=== PATIENT | male | born 1965 | race Caucasian/White ===

== ENCOUNTER 2018-03-08 13:04 | Inpatient (IN) | payer MEDICARE ==
[~2018-03-08 13:04] MED LIST: DEXAMETHASONE SOD PHOSPHATE INJ 4 MG/1 ML VIAL ONE; KETOROLAC TROMETHAMINE 60 MG/2 ML SDV ONE; LIDOCAINE 2% INJ-PF (20 MG/ML) 2 ML AMPUL ONE; NEOSTIGMINE METHYLSULFATE 10 MG/10 ML VIAL ONE; ONDANSETRON HCL INJ/PF 4 MG/2 ML SDV ONE; ROCURONIUM BROMIDE INJ 50 MG/5 ML VIAL IV ONE; SUCCINYLCHOLINE CHLORIDE INJ 200 MG/10 ML VIAL ONE; VECURONIUM BROMIDE INJ 10 MG VIAL IV ONE
--- NOTE | 2018-03-08 14:34 | ER Document Report ---
ED Medical Screen (RME) - General Chief Complaint: Abdominal Pain Stated Complaint: ABDOMINAL PAIN Time Seen by Provider: 03/08/18 14:29 Mode of Arrival: Ambulatory Information source: Patient, [facility] Records Notes: 52-year-old male with no reported past medical history presents with complaint of abdominal pain, nausea, vomiting. Patient states abdominal pain started 2 days prior to arrival. He describes it as a sharp stabbing pain that is diffusely located. Patient has not had a bowel movement in 2 days. He denies any narcotic medications but does admit to drinking heavily on a daily basis. I have greeted and performed a rapid initial assessment of this patient. A comprehensive ED assessment and evaluation of the patient, analysis of test results and completion of medical decision making process we will be contacted by additional ED providers. PHYSICAL EXAMINATION: Vital signs reviewed-tachycardic GENERAL: Appears uncomfortable LUNGS: No respiratory distress Musculoskeletal: Normal range of motion NEUROLOGICAL: Normal speech, normal gait. PSYCH: Normal mood, normal affect. SKIN: Warm, Dry, normal turgor, no rashes or lesions noted. TRAVEL OUTSIDE OF THE [place] IN LAST 30 DAYS: No - HPI Onset: Other Onset/Duration: Gradual, Persistent, Worse Quality of pain: Stabbing Severity: Moderate Associated Symptoms: Abdominal pain, Nausea, Vomiting Exacerbated by: Denies Relieved by: Denies Recently seen / treated by doctor: No - Related Data Smoking: Cigarettes Frequency of alcohol use: Heavy Drug Abuse: None Allergies/Adverse Reactions: No Known Allergies Allergy (Unverified 03/08/18 13:07) Physical Exam - Vital signs Vitals: Temp Pulse Resp BP Pulse Ox 98 F 117 H 28 H 124/86 H 93 03/08/18 13:28 03/08/18 13:28 03/08/18 13:28 03/08/18 13:28 03/08/18 13:28 Course - Vital Signs Vital signs: Temp Pulse Resp BP Pulse Ox 98 F 117 H 28 H 124/86 H 93 03/08/18 13:28 03/08/18 13:28 03/08/18 13:28 03/08/18 13:28 03/08/18 13:28
--- NOTE | 2018-03-08 15:32 | RADIOLOGY REPORT (SQ) ---
EXAM DESCRIPTION: ACUTE ABDOMEN SERIES COMPLETED DATE/TIME: 03/08/2018 3:07 pm REASON FOR STUDY: no BM generalized pain COMPARISON: None. NUMBER OF VIEWS: Three views. TECHNIQUE: Frontal chest, supine abdomen and upright/decubitus abdomen radiographic images acquired. LIMITATIONS: None. FINDINGS: CHEST: Small right pleural effusion. FREE AIR: There is abnormal air lucency beneath the right hemidiaphragm. BOWEL GAS PATTERN: There are gas-filled distended loops of bowel in the left hemiabdomen measuring up to 5.2 cm. There is additional scattered gas present to the rectum. CALCIFICATIONS: No suspicious calcifications. HARDWARE: None in the abdomen. SOFT TISSUES: No gross mass or suggestion of organomegaly. BONES: No acute fracture. No worrisome bone lesions. OTHER: No other significant finding. IMPRESSION: 1. Small right pleural effusion. 2. Abnormal air lucency which appears to be located beneath the right hemidiaphragm, concerning alth ough not definite for intra-abdominal free air. Recommend CT to further evaluate. 3. Multiple gas-filled, distended loops of bowel in the left hemiabdomen measuring up to 5.2 cm. Th ere is additional scattered gas present to the rectum. Findings may reflect a partial or developing small bowel obstruction. Recommend CT to further evaluate. TECHNICAL DOCUMENTATION: JOB ID: [id number] [employer]- All Rights Reserved Reading location - IP/workstation name: [email or web address]
[2018-03-08 17:01] LABS: HEMATOCRIT 47.2 % (37.9-51.0); HEMOGLOBIN 16.7 g/dL (13.5-17.0); MEAN CORPUSCULAR HEMOGLOBIN 34.5 pg (27.0-33.4); MEAN CORPUSCULAR HGB CONC 35.4 g/dL (32.0-36.0); MEAN CORPUSCULAR VOLUME 98 fl (80-97); PLATELET COUNT 242 10^3/uL (150-450); RED BLOOD COUNT 4.84 10^6/uL (4.35-5.55); RED CELL DISTRIBUTION WIDTH 14.3 % (11.5-14.0); WHITE BLOOD COUNT 9.6 10^3/uL (4.0-10.5)
[2018-03-08 17:09] LABS: ALANINE AMINOTRANSFERASE 25 U/L (21-72); ALBUMIN 4.1 g/dL (3.5-5.0); ALKALINE PHOSPHATASE 53 U/L (38-126); ANION GAP 13 (5-19); ASPARTATE AMINO TRANSFERASE 31 U/L (17-59); BILIRUBIN,DIRECT 0.5 mg/dL (0.0-0.4); BILIRUBIN,TOTAL 1.3 mg/dL (0.2-1.3); BLOOD UREA NITROGEN 43 mg/dL (7-20); CALCIUM 8.8 mg/dL (8.4-10.2); CARBON DIOXIDE 25 mmol/L (22-30); CHLORIDE 100 mmol/L (98-107); GLUCOSE 132 mg/dL (75-110); LIPASE 309.1 U/L (23-300); POTASSIUM 4.3 mmol/L (3.6-5.0); SODIUM 137.7 mmol/L (137-145); TOTAL PROTEIN 7.4 g/dL (6.3-8.2)
[2018-03-08 17:37] LABS: ABSOLUTE LYMPHOCYTES# (MANUAL) 0.4 10^3/uL (0.5-4.7); ABSOLUTE MONOCYTES # (MANUAL) 0.4 10^3/uL (0.1-1.4); ABSOLUTE NEUTROPHILS# (MANUAL) 8.8 10^3/uL (1.7-8.2); ANISOCYTOSIS SLIGHT; BAND NEUTROPHILS % (MANUAL) 5 % (3-5); BASOPHILS % (MANUAL) 0 % (0-2); EOSINOPHILS % (MANUAL) 0 % (0-6); LYMPHOCYTES % (MANUAL) 4 % (13-45); MONOCYTES % (MANUAL) 4 % (3-13); PLATELET COMMENT ADEQUATE; SEGMENTED NEUTROPHILS % (MAN) 87 % (42-78); TOTAL CELLS COUNTED 100
[2018-03-08 17:39] LABS: PLATELET LARGE PRESENT; POIKILOCYTOSIS SLIGHT; TEAR DROP CELLS SLIGHT
--- NOTE | 2018-03-08 17:56 | ER Document Report ---
ED GI/ - General Chief Complaint: Abdominal Pain Stated Complaint: ABDOMINAL PAIN Time Seen by Provider: 03/08/18 14:29 Mode of Arrival: Ambulatory Notes: This is a 52-year-old male to the emergency department chief complaint of abdominal pain. Symptoms have been present for about 1 day. States that he was drinking a lot of whiskey recently. Maynard severe pain after drinking. Has not been able to have a bowel movement. Does not feel like he is passing gas. No prior history of abdominal surgeries. Does have hepatitis C. Prior history of IV drug abuse. Rates pain as 5/5 on a numeric pain scale. TRAVEL OUTSIDE OF THE [place] IN LAST 30 DAYS: No - HPI Patient complains to provider of: Abdominal pain Timing/Duration: Sudden Quality of pain: Achy, Throbbing Severity at maximum: Moderate Severity in ED: Moderate Pain Level: 3 Location: Epigastric - Related Data Allergies/Adverse Reactions: acetaminophen [From Lortab] Allergy (Verified 03/08/18 15:43) buprenorphine [From Suboxone] Allergy (Verified 03/08/18 15:43) hydrocodone [From Lortab] Allergy (Verified 03/08/18 15:43) naloxone [From Suboxone] Allergy (Verified 03/08/18 15:43) Past Medical History - General Information source: Patient, COUNTS INCLUDE 234 BEDS AT THE [facility] Records - Social History Smoking Status: Current Every Day Smoker Frequency of alcohol use: Heavy Drug Abuse: None Lives with: Alone Family History: Reviewed & Not Pertinent Patient has suicidal ideation: No Patient has homicidal ideation: No Renal/ Medical History: Denies: Hx Peritoneal Dialysis GI Medical History: Reports: Hx Hepatitis, Hx Ulcer Review of Systems - Review of Systems Notes: Constitutional: denies: Chills, Diaphoresis, Fever, Malaise, Weakness EENT: denies: Eye discharge, Blurred vision, Tearing, Double vision, Nose congestion, Nose discharge, Throat swelling, Mouth pain Cardiovascular: denies: Palpitations, Heart racing, Orthopnea, Dyspnea, Chest pain Respiratory: denies: Cough, Hurts to breathe, Wheezing, Shortness of breath Gastrointestinal: Does complain of abdominal pain and abdominal distention, epigastric pain, nausea Genitourinary: denies: Burning, Dysuria, Discharge, Frequency, Flank pain, Hematuria Musculoskeletal: denies: Joint pain, Joint swelling, Muscle pain, Muscle stiffness, back pain Hematologic/Lymphatic: denies: Anemia, Easy bleeding, Easy bruising, Blood clots Neurological/Psychological: denies: Confusion, Dementia, Depression, Loss of consciousness Skin: No lesions, no masses, no skin breakdown, no abscesses Physical Exam - Vital signs Vitals: Temp Pulse Resp BP Pulse Ox 98 F 117 H 28 H 124/86 H 93 03/08/18 13:28 03/08/18 13:28 03/08/18 13:28 03/08/18 13:28 03/08/18 13:28 Interpretation: Tachycardic - General General appearance: Appears well, Alert - HEENT Head: Normocephalic, Atraumatic Eyes: Normal Pupils: PERRL - Respiratory Respiratory status: No respiratory distress Chest status: Nontender Breath sounds: Normal Chest palpation: Normal - Cardiovascular Rhythm: Tachycardia Heart sounds: Normal auscultation Murmur: No - Abdominal Inspection: Normal Distension: No distension Bowel sounds: Normal Tenderness: Nontender Organomegaly: No organomegaly - Back Back: Normal, Nontender - Extremities General upper extremity: Normal inspection, Nontender, Normal color, Normal ROM , Normal temperature General lower extremity: Normal inspection, Nontender, Normal color, Normal ROM , Normal temperature, Normal weight bearing. No: Michelle's sign - Neurological Neuro grossly intact: Yes Cognition: Normal Orientation: AAOx4 [place] Coma Scale Eye Opening: Spontaneous Maikol Coma Scale Verbal: Oriented [place] Coma Scale Motor: Obeys Commands Maikol Coma Scale Total: 15 Speech: Normal Motor strength normal: LUE, RUE, LLE, RLE Sensory: Normal - Psychological Associated symptoms: Normal affect, Normal mood - Skin Skin Temperature: Warm Skin Moisture: Dry Skin Color: Normal Course - Re-evaluation Re-evalutation: 03/08/18 20:14 Laboratory 03/08/18 03/08/18 03/08/18 16:37 16:37 18:47 WBC 9.6 RBC 4.84 Hgb 16.7 Hct 47.2 MCV 98 H MCH 34.5 H MCHC 35.4 RDW 14.3 H Plt Count 242 Total Counted 100 Seg Neutrophils % Not Reportable Seg Neuts % (Manual) 87 H Band Neutrophils % 5 Lymphocytes % Not Reportable Lymphocytes % (Manual) 4 L Monocytes % Not Reportable Monocytes % (Manual) 4 Eosinophils % Not Reportable Eosinophils % (Manual) 0 Basophils % Not Reportable Basophils % (Manual) 0 Absolute Neutrophils Not Reportable Abs Neuts (Manual) 8.8 H Absolute Lymphocytes Not Reportable Abs Lymphs (Manual) 0.4 L Absolute Monocytes Not Reportable Abs Monocytes (Manual) 0.4 Absolute Eosinophils Not Reportable Absolute Eos (Manual) 0.0 Absolute Basophils Not Reportable Abs Basophils (Manual) 0.0 Large Platelets PRESENT Platelet Comment ADEQUATE Poikilocytosis SLIGHT Anisocytosis SLIGHT Tear Drop Cells SLIGHT Sodium 137.7 Potassium 4.3 Chloride 100 Carbon Dioxide 25 Anion Gap 13 BUN 43 H Creatinine 1.56 H Est GFR ( Amer) 57 L Est GFR (Non-Af Amer) 47 L Glucose 132 H Lactic Acid 1.1 Calcium 8.8 Total Bilirubin 1.3 Direct Bilirubin 0.5 H Neonat Total Bilirubin Not Reportable Neonat Direct Bilirubin Not Reportable Neonat Indirect Bili Not Reportable AST 31 ALT 25 Alkaline Phosphatase 53 Total Protein 7.4 Albumin 4.1 Lipase 309.1 H 03/08/18 20:18 Acute Abdomen Series 03/08/18 14:32 IMPRESSION: 1. Small right pleural effusion. 2. Abnormal air lucency which appears to be located beneath the right hemidiaphragm, concerning although not definite for intra-abdominal free air. Recommend CT to further evaluate. 3. Multiple gas-filled, distended loops of bowel in the left hemiabdomen measuring up to 5.2 cm. There is additional scattered gas present to the rectum. Findings may reflect a partial or developing small bowel obstruction. Recommend CT to further evaluate. Abdomen/Pelvis CT 03/08/18 17:44 IMPRESSION: 1. Distal small bowel obstruction. 2. There is some free fluid in the abdomen. 3. There is a tiny nonobstructing intrarenal calculus on the right. Patient has free air seen on his CT scan. I did call the radiologist and pointed this out and he is going to admin his report. I have consulted the surgeon at this time. Patient is going to get an NG tube placed, 1 g Invanz, another liter of fluid and surgical admit at this time. 03/08/18 21:38 Procedure note: IV insertion Patient with multiple tries for IV. Nurse asked me to insert IV. After consent was obtained the right EJ was prepped with alcohol as well as chlorhexidine wipe. After IV was located aseptic technique was used. Patient was placed in reverse Trendelenburg. A 20-gau he was inserted under IV guidance with ultrasound. No complications. Good return of blood flow. Flushes well. No blood loss. No complications. IV was secured with Tegaderm and IVs securing device. - Vital Signs Vital signs: Temp Pulse Resp BP Pulse Ox 98 F 117 H 33 H 122/66 94 03/08/18 13:28 03/08/18 13:28 03/08/18 21:01 03/08/18 21:00 03/08/18 21:01 - Laboratory Result Diagrams: 03/08/18 16:37 03/08/18 16:37 Laboratory results interpreted by me: 03/08/18 03/08/18 16:37 16:37 MCV 98 H MCH 34.5 H RDW 14.3 H Seg Neuts % (Manual) 87 H Lymphocytes % (Manual) 4 L Abs Neuts (Manual) 8.8 H Abs Lymphs (Manual) 0.4 L BUN 43 H Creatinine 1.56 H Est GFR ( Amer) 57 L Est GFR (Non-Af Amer) 47 L Glucose 132 H Direct Bilirubin 0.5 H Lipase 309.1 H Critical Care Note - Critical Care Note Total time excluding time spent on procedures (mins): 45 Comments: Perforated viscus, peritonitis, consultation with specialist, coordination of care Discharge - Discharge Clinical Impression: Small bowel obstruction, Perforated abdominal viscus, Peritonitis (acute) generalized Condition: Fair Disposition: ADMITTED INPATIENT Admitting Provider: Surgicalist - Dr. Morales Unit Admitted: Surgical Floor
[2018-03-08] MEDS ORDERED: NORMAL SALINE 1000 ML 1,000 ML IV ONE ×2 (18:36→20:17)
[2018-03-08] MEDS ORDERED: FENTANYL CITRATE INJ/PF 100 MCG/2 ML AMPUL IV ONE (18:36)
--- NOTE | 2018-03-08 20:01 | RADIOLOGY REPORT (SQ) ---
EXAM DESCRIPTION: CT ABD/PELVIS WITH IV ORAL COMPLETED DATE/TIME: 03/08/2018 7:44 pm REASON FOR STUDY: obstruction COMPARISON: None. TECHNIQUE: CT scan of the abdomen and pelvis performed using helical scanning technique with dynamic intravenous contrast injection. The IV infiltrated and the contrast did not get into the patient. The emergency room physician instructed the technologist to proceed into the study without additional IV contrast. Oral contrast was given. Images reviewed with lung, soft tissue, and bone windows. Rec onstructed coronal and sagittal MPR images reviewed. Delayed images for evaluation of the urinary sys tem also acquired. All images stored on PACS. All CT scanners at this facility use dose modulation, iterative reconstruction, and/or weight based d osing when appropriate to reduce radiation dose to as low as reasonably achievable (ALARA). [facility]: Dose Right [facility]: CareDose [facility]: Dose Right [facility]: Teradose 4D [facility]: Semmx CONTRAST TYPE AND DOSE: contrast/concentration: Isovue 300.00 mg/ml; Total Contrast Delivered: 34.7 ml; Total Saline Delivered: 20.0 ml RENAL FUNCTION: BUN 43 creatinine 1.56 RADIATION DOSE: CT Rad equipment meets quality standard of care and radiation dose reduction techniq ues were employed. CTDIvol: 9.9 mGy. DLP: 565 mGy-cm.. LIMITATIONS: None. FINDINGS: LOWER CHEST: Minimal pleural effusions. Mild dependent atelectasis in both lungs. LIVER: Normal size. No masses. No dilated ducts. SPLEEN: Normal size. No focal lesions. PANCREAS: No masses. No significant calcifications. No adjacent inflammation or peripancreatic fluid collections. Pancreatic duct not dilated. GALLBLADDER: No identified stones by CT criteria. No inflammatory changes to suggest cholecystitis. ADRENAL GLANDS: No significant masses or asymmetry. RIGHT KIDNEY AND URETER: No solid masses. Tiny lower calyceal calculus. No hydronephrosis or hydr oureter. LEFT KIDNEY AND URETER: No solid masses. No significant calcifications. No hydronephrosis or hydr oureter. AORTA AND VESSELS: No aneurysm. No dissection. Renal arteries, SMA, celiac without stenosis. RETROPERITONEUM: No retroperitoneal adenopathy, hemorrhage or masses. BOWEL AND PERITONEAL CAVITY: Considerable small bowel dilatation is present. The transition point is not identified, but there is some dilated small bowel in the right side of the abdomen. There is so me free fluid in the abdomen. APPENDIX: Normal. PELVIS: No mass. No free fluid. Normal bladder. ABDOMINAL WALL: No masses. No hernias. BONES: No significant or acute findings. OTHER: No other significant finding. IMPRESSION: 1. Distal small bowel obstruction. 2. There is some free fluid in the abdomen. 3. There is a tiny nonobstructing intrarenal calculus on the right. TECHNICAL DOCUMENTATION: JOB ID: [id number] Quality ID # [id number]: Final reports with documentation of one or more dose reduction techniques (e.g., Au tomated exposure control, adjustment of the mA and/or kV according to patient size, use of iterative reconstruction technique) 2010 [employer]- All Rights Reserved Reading location - IP/workstation name: [email or web address]
[2018-03-08 20:45] LABS: INTERNATIONAL RATION (INR) 1.05; PARTIAL THROMBOPLASTIN TIME 28.3 SEC (23.5-35.8); PROTHROMBIN TIME 14.2 SEC (11.4-15.4)
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
[2018-03-08] MEDS ORDERED: HYDROMORPHONE HCL INJ/PF 2 MG/ML AMPULE ONE (21:32)
[2018-03-08] MEDS ORDERED: PROPOFOL INJ 200 MG/20 ML VIAL IV ONE (21:32)
[2018-03-08] MEDS ORDERED: ACETAMINOPHEN 1,000 MG/100 ML RTUPB IV ONE (21:32)
[2018-03-08] MEDS ORDERED: MIDAZOLAM 2 MG/2 ML INJ ONE (21:32)
[2018-03-08] MEDS ORDERED: CEFAZOLIN INJ 1 GM VIAL ONE (22:50)
[2018-03-08] MEDS ORDERED: ERTAPENEM SODIUM INJ 1 GM VIAL ONE (22:54)
[2018-03-08] MEDS ORDERED: PROMETHAZINE HCL INJ 25 MG/1 ML VIAL IV PRN ×2 (23:26)
[2018-03-08] MEDS ORDERED: MEPERIDINE HCL/PF INJ 25 MG/1 ML DISP.SYRIN IV PRN (23:26)
[2018-03-08] MEDS ORDERED: DIPHENHYDRAMINE HCL 50 MG/ML VIAL IV PRN (23:26)
[2018-03-08] MEDS ORDERED: FENTANYL CITRATE INJ/PF 100 MCG/2 ML AMPUL IV PRN ×3 (23:26)
[2018-03-08] MEDS ORDERED: ONDANSETRON HCL INJ/PF 4 MG/2 ML SDV IV PRN (23:26)
[2018-03-08] MEDS ORDERED: THIAMINE HCL 100 MG, FOLIC ACID 1 MG in NORMAL SALINE 250 ML IV ONE (23:30)
[2018-03-09] MEDS ORDERED: BUPIVACAINE HCL 0.5%-EPI 1:200000 INJ/PF 30 ML VIAL ONE (00:01)
--- NOTE | 2018-03-09 00:21 | Operative Report ---
Operative Report DATE OF SURGERY: 03/09/18 PREOPERATIVE DIAGNOSIS: Peritonitis. POSTOPERATIVE DIAGNOSIS: Perforated duodenal ulcer. OPERATION: Exploratory laparotomy with omental patch of duodenal ulcer. SURGEON: ANTONI WEEKS ANESTHESIA: GA TISSUE REMOVED OR ALTERED: None COMPLICATIONS: None ESTIMATED BLOOD LOSS: 20 cc INTRAOPERATIVE FINDINGS: Copious amount of bilious fluid throughout the peritoneal cavity. No evidence of small bowel obstruction. Lobulated enlarged liver but not cirrhotic. No evidence of portal hypertension. Duodenal perforation at the first portion of the duodenum. PROCEDURE: Informed consent was obtained. Patient was brought to the operating room and placed on the operating room table in supine position. After satisfactory induction of general anesthesia patient's abdomen was prepped and draped in the usual sterile fashion. A upper midline incision was made dissection carried out through the fascia and the peritoneal cavity was entered without difficulty. There was copious amount of bilious fluid throughout the peritoneal cavity. A wound protractor was used as well as the Bookwalter retractor was used during the case. Exploratory laparotomy was performed. The fluid was aspirated. The sigmoid colon felt normal. I felt no evidence of inflammatory changes around the cecum. The small bowel appeared distended but there was no evidence of jejunal nor ileal perforation. The small bowel was run from the ligament of Treitz down to the ileocecal junction. There was no evidence of obstruction. The liver appeared mildly enlarged and lobulated but not cirrhotic. The gallbladder felt normal. The liver and the gallbladder was retracted away from the stomach and duodenum revealing a duodenal ulcer perforation at the anterior surface of the first portion of the duodenum. There was exudate all around this region. There was bilious fluid flowing out of this perforation. I did not see any gross gastric abnormalities. NG tube position was confirmed by palpation. No evidence of varices were seen. The duodenal perforation was repaired using an omental patch using three Vicryl sutures. The repair appeared secure. The repair was tested by insufflating air via the NG tube and with the stomach distended with air, there was no air bubbles coming from the repair. The peritoneal cavity was thoroughly irrigated and the irrigant aspirated out. Irrigation fluid was perfectly clear at the end of the case. Two Stan-Coffey drains were placed in the region of the duodenum and brought out through separate stab incisions in the patient's right upper quadrant and sutured in place. Sponge needle and instrument counts were all correct. Hemostasis appeared excellent. One last look at the omental patch demonstrated security of the repair. The fascia was closed with running PDS suture. Skin was closed with tracey. Marcaine was injected at the incision site. Patient tolerated procedure well with no apparent complications and was taken to the recovery area in stable condition.
[2018-03-09] MEDS ORDERED: GLUCAGON,HUMAN RECOMB 1 MG INJ SUBCUT PRN (00:22)
[2018-03-09] MEDS ORDERED: DEXTROSE 40% GEL 15 GM TUBE PO PRN ×2 (00:22)
[2018-03-09] MEDS ORDERED: MORPHINE SULFATE 10 MG/ML INJ IV PRN (00:22)
[2018-03-09] MEDS ORDERED: DEXTROSE 50%-WATER 25 GM/50 ML DISP.SYRIN IV PRN ×2 (00:22)
[2018-03-09] MEDS ORDERED: PHARMACY COMMUNICATION ORDER MC NR (00:30)
[2018-03-09] MEDS ORDERED: CEFAZOLIN 1 GM/D5W RTU 1 GM/50 ML RTUPB IV ONE ×2 (00:45→03:29)
[2018-03-09] MEDS ORDERED: HYDROMORPHONE HCL INJ/PF 2 MG/ML AMPULE ONE (00:53)
[2018-03-09] MEDS: HYDROMORPHONE HCL INJ/PF 2 MG/ML AMPULE IV PRN ×5 (00:55→20:23)
--- NOTE | 2018-03-09 00:57 | PDOC PROGRESS REPORT ---
Subjective Progress Note for:: 03/09/18 Subjective:: Awake. Feels much better. Reason For Visit: SMALL BOWEL OBSTRUCTION Physical Exam Vital Signs: Temp Pulse Resp BP Pulse Ox 98 F 117 H 33 H 122/66 94 03/08/18 13:28 03/08/18 13:28 03/08/18 21:01 03/08/18 21:00 03/08/18 21:01 Intake & Output 03/07/18 03/08/18 03/09/18 06:59 06:59 06:59 Intake Total 4000 Output Total 100 Balance 3900 General appearance: PRESENT: no acute distress, cooperative Respiratory exam: PRESENT: clear to auscultation terrance Cardiovascular exam: PRESENT: RRR GI/Abdominal exam: PRESENT: other - Soft, distended, appropriate diffuse tenderness but much less than preop. Drain output is serosanguineous. Results Impressions: Acute Abdomen Series 03/08/18 14:32 IMPRESSION: 1. Small right pleural effusion. 2. Abnormal air lucency which appears to be located beneath the right hemidiaphragm, concerning although not definite for intra-abdominal free air. Recommend CT to further evaluate. 3. Multiple gas-filled, distended loops of bowel in the left hemiabdomen measuring up to 5.2 cm. There is additional scattered gas present to the rectum. Findings may reflect a partial or developing small bowel obstruction. Recommend CT to further evaluate. Abdomen/Pelvis CT 03/08/18 17:44 IMPRESSION: 1. Distal small bowel obstruction. 2. There is some free fluid in the abdomen. 3. There is a tiny nonobstructing intrarenal calculus on the right. Assessment & Plan - Diagnosis (1) Perforated abdominal viscus Is this a current diagnosis for this admission?: Yes (2) Perforated duodenal ulcer Is this a current diagnosis for this admission?: Yes Plan: Status post omental patch. Patient looks good. We will keep in the ICU overnight. We will likely transfer patient to the floor if he continues to do well. Consult hospitalist to assist us in managing this patient with high risk for alcohol withdrawal.
[2018-03-09] MEDS ORDERED: DEXTROSE 40% GEL 15 GM TUBE NG PRN ×2 (01:00)
[2018-03-09] MEDS ORDERED: LORAZEPAM INJ 2 MG/1 ML VIAL IV PRN (01:25)
[2018-03-09] MEDS: NORMAL SALINE 1000 ML 1,000 ML IV PRN ×2 (03:29→09:21)
[2018-03-09 04:12] LABS: HEMATOCRIT 42.6 % (37.9-51.0); MEAN CORPUSCULAR HEMOGLOBIN 33.8 pg (27.0-33.4); MEAN CORPUSCULAR HGB CONC 34.3 g/dL (32.0-36.0); MEAN CORPUSCULAR VOLUME 99 fl (80-97); PLATELET COUNT 180 10^3/uL (150-450); RED BLOOD COUNT 4.31 10^6/uL (4.35-5.55); RED CELL DISTRIBUTION WIDTH 14.3 % (11.5-14.0)
[2018-03-09 04:21] LABS: ALANINE AMINOTRANSFERASE 24 U/L (21-72); ALBUMIN 2.9 g/dL (3.5-5.0); ALKALINE PHOSPHATASE 40 U/L (38-126); ANION GAP 12 (5-19); ASPARTATE AMINO TRANSFERASE 36 U/L (17-59); BILIRUBIN,DIRECT 0.2 mg/dL (0.0-0.4); BILIRUBIN,TOTAL 0.5 mg/dL (0.2-1.3); BLOOD UREA NITROGEN 42 mg/dL (7-20); CALCIUM 7.7 mg/dL (8.4-10.2); CARBON DIOXIDE 23 mmol/L (22-30); CHLORIDE 104 mmol/L (98-107); GLUCOSE 124 mg/dL (75-110); HEMOGLOBIN 14.6 g/dL (13.5-17.0); POTASSIUM 4.5 mmol/L (3.6-5.0); SODIUM 138.9 mmol/L (137-145); TOTAL PROTEIN 5.6 g/dL (6.3-8.2)
[2018-03-09] MEDS ORDERED: CEFAZOLIN 1 GM/D5W RTU 1 GM/50 ML RTUPB IV SCH (06:00)
[2018-03-09] MEDS: PANTOPRAZOLE SODIUM 40 MG VIAL IV SCH ×2 (06:12→16:07)
--- NOTE | 2018-03-09 06:37 | PDOC CONSULTATION ---
Consultation Consult Date: 03/08/18 Attending physician:: ANTONI WEEKS Consult reason:: Alcohol dependence History of Present Illness Admission Date/PCP: 03/08/18 20:23 Patient complains of: Abdominal pain History of Present Illness: MOHSEN HERR is a 52 year old male with history of tobacco and alcohol dependence admitted through the emergency room for abdominal pain found to have free air and small bowel obstruction on CT imaging. Patient is postop day 0 found to have a perforated duodenal ulcer. Patient seen in the ICU postoperatively with residual perioperative analgesia. Patient admits feeling much better, denies chest pain, palpitations, nausea or vomiting. He denies a history of alcohol withdrawal or seizure however is unable to recall a 3-day duration of sobriety. Past Medical History Cardiac Medical History: Reports: None Pulmonary Medical History: Reports: Bronchitis GI Medical History: Reports: Hepatitis Musculoskeltal Medical History: Reports: Arthritis, Other - Multiple trauma related injuries in the past. Psychiatric Medical History: Denies: Depression Past Surgical History Past Surgical History: Reports: Other - Multiple jaw and nose and wrist surgery. Social History Information Source: Patient, [facility] Records Lives with: Alone Smoking Status: Current Every Day Smoker Cigarettes Packs Per Day: 30 Number of Years Smokin Last Time Smoked: 03/06/20 Frequency of Alcohol Use: Heavy Hx Recreational Drug Use: Yes Drugs: Cocaine, Heroin Hx Prescription Drug Abuse: No - Advance Directive Resuscitation Status: Full Code Family History Family History: COPD, Hypertension Parental Family History Reviewed: Yes Children Family History Reviewed: Yes Sibling(s) Family History Reviewed.: Yes Medication/Allergy Home Medications: No Home Medications 03/08/18 Allergies/Adverse Reactions: acetaminophen [From Lortab] Allergy (Verified 03/08/18 15:43) buprenorphine [From Suboxone] Allergy (Verified 03/08/18 15:43) hydrocodone [From Lortab] Allergy (Verified 03/08/18 15:43) naloxone [From Suboxone] Allergy (Verified 03/08/18 15:43) Review of Systems ROS unobtainable: Due to mental status - Perioperative sedation Physical Exam Vital Signs: Temp Pulse Resp BP Pulse Ox 98.2 F 77 13 102/65 94 03/09/18 05:28 03/09/18 04:04 03/09/18 05:37 03/09/18 05:37 03/09/18 05:37 Intake & Output 03/07/18 03/08/18 03/09/18 11:59 11:59 11:59 Intake Total 6850 Output Total 1125 Balance 5725 Weight 75.4 kg General appearance: PRESENT: no acute distress, cooperative. ABSENT: hard of hearing Head exam: PRESENT: atraumatic, normocephalic Eye exam: PRESENT: conjunctiva pink, EOMI, PERRLA. ABSENT: scleral icterus Ear exam: PRESENT: normal external ear exam Mouth exam: PRESENT: moist, tongue midline Neck exam: ABSENT: carotid bruit, JVD, lymphadenopathy, thyromegaly Respiratory exam: PRESENT: clear to auscultation terrance. ABSENT: rales, rhonchi, wheezes Cardiovascular exam: PRESENT: RRR. ABSENT: diastolic murmur, rubs, systolic murmur Pulses: PRESENT: normal dorsalis pedis pul Vascular exam: PRESENT: normal capillary refill GI/Abdominal exam: PRESENT: diminished bowel sounds, other - Surgical site bound , 2 JOSEPH functional drains. ABSENT: distended, tenderness Rectal exam: PRESENT: deferred Extremities exam: PRESENT: full ROM. ABSENT: calf tenderness, clubbing, pedal edema Neurological exam: PRESENT: alert, awake, oriented to person, oriented to place , oriented to time, oriented to situation, CN II-XII grossly intact. ABSENT: motor sensory deficit Psychiatric exam: PRESENT: appropriate affect, normal mood, unusual affect. ABSENT: homicidal ideation, suicidal ideation Skin exam: PRESENT: dry, intact, warm. ABSENT: cyanosis, rash Results Laboratory Results: 03/09/18 03:43 03/09/18 03:43 03/09/18 03/09/18 03:43 03:43 WBC 5.0 RBC 4.31 L Hgb 14.6 D Hct 42.6 MCV 99 H MCH 33.8 H MCHC 34.3 RDW 14.3 H Plt Count 180 Sodium 138.9 Potassium 4.5 Chloride 104 Carbon Dioxide 23 Anion Gap 12 BUN 42 H Creatinine 1.17 Est GFR ( Amer) > 60 Est GFR (Non-Af Amer) > 60 Glucose 124 H Calcium 7.7 L Total Bilirubin 0.5 AST 36 ALT 24 Alkaline Phosphatase 40 Total Protein 5.6 L Albumin 2.9 L Impressions: Acute Abdomen Series 03/08/18 14:32 IMPRESSION: 1. Small right pleural effusion. 2. Abnormal air lucency which appears to be located beneath the right hemidiaphragm, concerning although not definite for intra-abdominal free air. Recommend CT to further evaluate. 3. Multiple gas-filled, distended loops of bowel in the left hemiabdomen measuring up to 5.2 cm. There is additional scattered gas present to the rectum. Findings may reflect a partial or developing small bowel obstruction. Recommend CT to further evaluate. Abdomen/Pelvis CT 03/08/18 17:44 IMPRESSION: 1. Distal small bowel obstruction. 2. There is some free fluid in the abdomen. 3. There is a tiny nonobstructing intrarenal calculus on the right. Assessment & Plan - Diagnosis (1) Alcohol dependence Is this a current diagnosis for this admission?: Yes Plan: Thiamine, folate and as needed Ativan (2) Tobacco dependence Is this a current diagnosis for this admission?: Yes Plan: Nicotine patch as needed (3) Perforated abdominal viscus Is this a current diagnosis for this admission?: Yes Plan: Follow-up biopsy for likely H. pylori - Time Time Spent: 30 to 50 Minutes - Inpatient Certification Medical Necessity: Need Close Monitoring Due to Risk of Patient Decompensation
--- NOTE | 2018-03-09 08:39 | PDOC PROGRESS REPORT ---
Subjective Reason For Visit: PERFORATED DUODENAL ULCER Physical Exam Vital Signs: Temp Pulse Resp BP Pulse Ox 98.3 F 66 10 L 108/67 96 03/09/18 08:00 03/09/18 08:00 03/09/18 08:00 03/09/18 08:00 03/09/18 08:00 Intake & Output 03/08/18 03/09/18 03/10/18 06:59 06:59 06:59 Intake Total 6850 Output Total 1125 60 Balance 5725 -60 Weight 75.4 kg Results Laboratory Results: 03/09/18 03:43 03/09/18 03:43 03/09/18 03/09/18 03:43 03:43 WBC 5.0 RBC 4.31 L Hgb 14.6 D Hct 42.6 MCV 99 H MCH 33.8 H MCHC 34.3 RDW 14.3 H Plt Count 180 Sodium 138.9 Potassium 4.5 Chloride 104 Carbon Dioxide 23 Anion Gap 12 BUN 42 H Creatinine 1.17 Est GFR ( Amer) > 60 Est GFR (Non-Af Amer) > 60 Glucose 124 H Calcium 7.7 L Total Bilirubin 0.5 AST 36 ALT 24 Alkaline Phosphatase 40 Total Protein 5.6 L Albumin 2.9 L Impressions: Acute Abdomen Series 03/08/18 14:32 IMPRESSION: 1. Small right pleural effusion. 2. Abnormal air lucency which appears to be located beneath the right hemidiaphragm, concerning although not definite for intra-abdominal free air. Recommend CT to further evaluate. 3. Multiple gas-filled, distended loops of bowel in the left hemiabdomen measuring up to 5.2 cm. There is additional scattered gas present to the rectum. Findings may reflect a partial or developing small bowel obstruction. Recommend CT to further evaluate. Abdomen/Pelvis CT 03/08/18 17:44 IMPRESSION: 1. Distal small bowel obstruction. 2. There is some free fluid in the abdomen. 3. There is a tiny nonobstructing intrarenal calculus on the right. Assessment & Plan - Diagnosis (1) Perforated duodenal ulcer Is this a current diagnosis for this admission?: Yes - Plan Summary Plan Summary: This is a 52-year-old male status post exploratory laparotomy and oversewing/ Nate patch of a duodenal ulcer. The patient denies pain at this time. His JOSEPH drains are productive of serosanguineous fluid. His vital signs are stable. I will add Diflucan to his antibiotic regimen. I will start him on peripheral intravenous nutrition. Maintain NG tube to suction. Okay for ice chips and occasional popsicles. Out of bed today. D/C Abi. Aggressive pulmonary toilet.
[2018-03-09] MEDS: CEFAZOLIN 1 GM/D5W RTU 1 GM/50 ML RTUPB IV SCH ×3 (09:21→21:20)
[2018-03-09] MEDS: ENOXAPARIN SODIUM INJ 40 MG/0.4 ML DISP.SYRIN SUBCUT SCH (09:22)
[2018-03-09] MEDS ORDERED: DIAZEPAM INJ 10 MG/2 ML DISP.SYRIN IV PRN (09:25)
[2018-03-09] MEDS: ONDANSETRON HCL INJ/PF 4 MG/2 ML SDV IV PRN (09:52)
[2018-03-09] MEDS: NICOTINE 21 MG/24 HR PATCH.TD24 TD SCH (12:24)
[2018-03-09 12:25] LABS: PROTHROMBIN TIME 13.7 SEC (11.4-15.4)
[2018-03-09] MEDS: FLUCONAZOLE 100 MG in CONTAINER,EMPTY 1 EACH IV SCH (12:25)
[2018-03-09] MEDS: THIAMINE HCL 100 MG, FOLIC ACID 1 MG in NORMAL SALINE 250 ML IV SCH (12:25)
[2018-03-09] MEDS: BENZOCAINE/MENTHOL SORE THROAT LOZENGE BUCCAL PRN ×2 (14:07→23:53)
[2018-03-09] MEDS: DEXTROSE 5%-NORMAL SALINE 1,000 ML IV PRN (21:23)
[2018-03-10] MEDS: HYDROMORPHONE HCL INJ/PF 2 MG/ML AMPULE IV PRN ×6 (02:34→21:06)
[2018-03-10] MEDS: CEFAZOLIN 1 GM/D5W RTU 1 GM/50 ML RTUPB IV SCH ×4 (02:34→21:06)
[2018-03-10] MEDS: ONDANSETRON HCL INJ/PF 4 MG/2 ML SDV IV PRN ×3 (02:45→21:13)
[2018-03-10] MEDS: DEXTROSE 5%-NORMAL SALINE 1,000 ML IV PRN ×3 (04:37→23:50)
[2018-03-10] MEDS: PANTOPRAZOLE SODIUM 40 MG VIAL IV SCH ×2 (05:09→16:54)
[2018-03-10 05:10] LABS: MEAN CORPUSCULAR VOLUME 98 fl (80-97)
[2018-03-10 05:16] LABS: ABSOLUTE LYMPHOCYTES (AUTO) 0.3 10^3/uL (0.5-4.7); ABSOLUTE MONOCYTES (AUTO) 0.3 10^3/uL (0.1-1.4); ABSOLUTE NEUT (AUTO) 2.1 10^3/uL (1.7-8.2); BASOPHILS % (AUTO) 0.1 % (0-2); EOSINOPHILS % (AUTO) 0.1 % (0-6); HEMATOCRIT 36.9 % (37.9-51.0); HEMOGLOBIN 12.7 g/dL (13.5-17.0); LYMPHOCYTES % (AUTO) 12.7 % (13-45); MEAN CORPUSCULAR HEMOGLOBIN 33.8 pg (27.0-33.4); MEAN CORPUSCULAR HGB CONC 34.5 g/dL (32.0-36.0); PLATELET COUNT 179 10^3/uL (150-450); RED BLOOD COUNT 3.76 10^6/uL (4.35-5.55); RED CELL DISTRIBUTION WIDTH 13.7 % (11.5-14.0); SEGMENTED NEUTROPHILS % (AUTO) 76.1 % (42-78); TOTAL CELLS COUNTED % (AUTO) 100 %
[2018-03-10 05:17] LABS: WHITE BLOOD COUNT 2.7 10^3/uL (4.0-10.5)
[2018-03-10 05:34] LABS: ALANINE AMINOTRANSFERASE 22 U/L (21-72); ALBUMIN 2.7 g/dL (3.5-5.0); ALKALINE PHOSPHATASE 35 U/L (38-126); ANION GAP 8 (5-19); ASPARTATE AMINO TRANSFERASE 25 U/L (17-59); BILIRUBIN,DIRECT 0.3 mg/dL (0.0-0.4); BILIRUBIN,TOTAL 0.4 mg/dL (0.2-1.3); BLOOD UREA NITROGEN 21 mg/dL (7-20); CALCIUM 7.8 mg/dL (8.4-10.2); CARBON DIOXIDE 24 mmol/L (22-30); CHLORIDE 106 mmol/L (98-107); GLUCOSE 120 mg/dL (75-110); POTASSIUM 3.8 mmol/L (3.6-5.0); SODIUM 138.3 mmol/L (137-145); TOTAL PROTEIN 5.3 g/dL (6.3-8.2)
[2018-03-10] MEDS: ENOXAPARIN SODIUM INJ 40 MG/0.4 ML DISP.SYRIN SUBCUT SCH (09:22)
[2018-03-10] MEDS: NICOTINE 21 MG/24 HR PATCH.TD24 TD SCH (09:22)
[2018-03-10] MEDS: FLUCONAZOLE 100 MG in CONTAINER,EMPTY 1 EACH IV SCH (09:22)
[2018-03-10] MEDS: BENZOCAINE/MENTHOL SORE THROAT LOZENGE BUCCAL PRN ×2 (09:24→20:00)
[2018-03-10] MEDS ORDERED: BENZOCAINE 20% AEROSOL SPRAY 60 GM TP PRN (09:46)
--- NOTE | 2018-03-10 09:52 | PDOC PROGRESS REPORT ---
Subjective Progress Note for:: 03/10/18 Subjective:: Feels okay. Irritation from NG tube with a sore throat. Passing gas. Very hungry. Reason For Visit: PERFORATED DUODENAL ULCER Physical Exam Vital Signs: Temp Pulse Resp BP Pulse Ox 98.7 F 72 23 H 142/84 H 94 03/10/18 07:37 03/10/18 07:37 03/10/18 07:37 03/10/18 07:37 03/10/18 07:37 Intake & Output 03/09/18 03/10/18 03/11/18 06:59 06:59 06:59 Intake Total 6850 2080 351.2 Output Total 1125 1835 Balance 5725 245 351.2 Weight 75.4 kg 76.9 kg General appearance: PRESENT: no acute distress, cooperative Respiratory exam: PRESENT: clear to auscultation terrance Cardiovascular exam: PRESENT: RRR GI/Abdominal exam: PRESENT: other - Soft, mildly distended, appropriate tenderness diffusely. No peritoneal signs. Drain output is serosanguineous. Nonbloody and nonbilious. Skin exam: PRESENT: warm Results Laboratory Results: 03/10/18 04:42 03/10/18 04:42 03/09/18 03/10/18 03/10/18 11:58 04:42 04:42 WBC 2.7 L D RBC 3.76 L Hgb 12.7 L Hct 36.9 L MCV 98 H MCH 33.8 H MCHC 34.5 RDW 13.7 Plt Count 179 Seg Neutrophils % 76.1 Lymphocytes % 12.7 L Monocytes % 11.0 Eosinophils % 0.1 Basophils % 0.1 Absolute Neutrophils 2.1 Absolute Lymphocytes 0.3 L Absolute Monocytes 0.3 Absolute Eosinophils 0.0 Absolute Basophils 0.0 Sodium 138.3 Potassium 3.8 Chloride 106 Carbon Dioxide 24 Anion Gap 8 BUN 21 H Creatinine 0.72 Est GFR ( Amer) > 60 Est GFR (Non-Af Amer) > 60 Glucose 120 H Calcium 7.8 L Magnesium 2.2 Total Bilirubin 0.4 AST 25 ALT 22 Alkaline Phosphatase 35 L Total Protein 5.3 L Albumin 2.7 L Impressions: Acute Abdomen Series 03/08/18 14:32 IMPRESSION: 1. Small right pleural effusion. 2. Abnormal air lucency which appears to be located beneath the right hemidiaphragm, concerning although not definite for intra-abdominal free air. Recommend CT to further evaluate. 3. Multiple gas-filled, distended loops of bowel in the left hemiabdomen measuring up to 5.2 cm. There is additional scattered gas present to the rectum. Findings may reflect a partial or developing small bowel obstruction. Recommend CT to further evaluate. Abdomen/Pelvis CT 03/08/18 17:44 IMPRESSION: 1. Distal small bowel obstruction. 2. There is some free fluid in the abdomen. 3. There is a tiny nonobstructing intrarenal calculus on the right. Assessment & Plan - Diagnosis (1) Perforated abdominal viscus Is this a current diagnosis for this admission?: Yes (2) Perforated duodenal ulcer Is this a current diagnosis for this admission?: Yes Plan: Doing well after omental patch and abdominal washout. Will obtain Gastrografin upper GI series tomorrow to check the integrity of the repair. Would like to keep the NG tube in for couple more days prior to starting diet.
[2018-03-10] MEDS: THIAMINE HCL 100 MG, FOLIC ACID 1 MG in NORMAL SALINE 250 ML IV SCH (10:49)
[2018-03-10] MEDS ORDERED: NORMAL SALINE 1000 ML 1,000 ML IV ONE (11:30)
--- NOTE | 2018-03-10 17:45 | PDOC PROGRESS REPORT ---
Subjective Progress Note for:: 03/10/18 Subjective:: MOHSEN HERR is a 52 year old male with history of tobacco and alcohol dependence admitted through the emergency room for abdominal pain found to have free air and small bowel obstruction on CT imaging. Patient is postop day 0 found to have a perforated duodenal ulcer. Patient seen in the ICU postoperatively with residual perioperative analgesia. Patient admits feeling much better, denies chest pain, palpitations, nausea or vomiting. He denies a history of alcohol withdrawal or seizure however is unable to recall a 3-day duration of sobriety. 03/10/2018. Day 1 post exploratory laparotomy with omental patch and abdominal washout for perforated duodenal ulcer. On my encounter patient is resting comfortably in his bed with a NG tube in is stating that he is still having persistent abdominal pain and it is worsened by coughing. He is passing gas however he has not had any bowel movement. He is denying any fever nausea, vomiting, diarrhea, constipation or any urinary symptoms. Reason For Visit: PERFORATED DUODENAL ULCER Physical Exam Vital Signs: Temp Pulse Resp BP Pulse Ox 98.7 F 73 18 132/86 H 95 03/10/18 15:37 03/10/18 15:37 03/10/18 15:37 03/10/18 15:37 03/10/18 15:37 Intake & Output 03/09/18 03/10/18 03/11/18 06:59 06:59 06:59 Intake Total 6850 2080 2612.4 Output Total 1125 1835 560 Balance 5725 245 2052.4 Weight 75.4 kg 76.9 kg General appearance: PRESENT: no acute distress, well-developed, well-nourished Respiratory exam: PRESENT: clear to auscultation terrance. ABSENT: rales, rhonchi, wheezes Cardiovascular exam: PRESENT: RRR. ABSENT: diastolic murmur, rubs, systolic murmur GI/Abdominal exam: PRESENT: distended, firm, guarding, hypoactive bowel sounds, soft, other - There is dressing over the surgical area looks clean patient also has drainage which is draining with clear fluid.. ABSENT: mass, organolmegaly, rebound, tenderness Neurological exam: PRESENT: alert, awake, oriented to person, oriented to place , oriented to time, oriented to situation, CN II-XII grossly intact. ABSENT: motor sensory deficit Results Laboratory Results: 03/10/18 04:42 03/10/18 04:42 03/10/18 03/10/18 04:42 04:42 WBC 2.7 L D RBC 3.76 L Hgb 12.7 L Hct 36.9 L MCV 98 H MCH 33.8 H MCHC 34.5 RDW 13.7 Plt Count 179 Seg Neutrophils % 76.1 Lymphocytes % 12.7 L Monocytes % 11.0 Eosinophils % 0.1 Basophils % 0.1 Absolute Neutrophils 2.1 Absolute Lymphocytes 0.3 L Absolute Monocytes 0.3 Absolute Eosinophils 0.0 Absolute Basophils 0.0 Sodium 138.3 Potassium 3.8 Chloride 106 Carbon Dioxide 24 Anion Gap 8 BUN 21 H Creatinine 0.72 Est GFR ( Amer) > 60 Est GFR (Non-Af Amer) > 60 Glucose 120 H Calcium 7.8 L Total Bilirubin 0.4 AST 25 ALT 22 Alkaline Phosphatase 35 L Total Protein 5.3 L Albumin 2.7 L Impressions: Acute Abdomen Series 03/08/18 14:32 IMPRESSION: 1. Small right pleural effusion. 2. Abnormal air lucency which appears to be located beneath the right hemidiaphragm, concerning although not definite for intra-abdominal free air. Recommend CT to further evaluate. 3. Multiple gas-filled, distended loops of bowel in the left hemiabdomen measuring up to 5.2 cm. There is additional scattered gas present to the rectum. Findings may reflect a partial or developing small bowel obstruction. Recommend CT to further evaluate. Abdomen/Pelvis CT 03/08/18 17:44 IMPRESSION: 1. Distal small bowel obstruction. 2. There is some free fluid in the abdomen. 3. There is a tiny nonobstructing intrarenal calculus on the right. Assessment & Plan - Diagnosis (1) Perforated duodenal ulcer Is this a current diagnosis for this admission?: Yes Plan: Defer management to surgery. (2) Tobacco dependence Is this a current diagnosis for this admission?: Yes Plan: Counseled on quitting. Nicotine patch. (3) Alcohol dependence Is this a current diagnosis for this admission?: Yes Plan: Monitor for withdrawals. Continue as needed benzo. Technique thiamine, folic acid, B12. (4) NELIDA (acute kidney injury) Is this a current diagnosis for this admission?: Yes Plan: Likely prerenal due to dehydration. Resolved. Monitor volume status and electrolytes. CMP tomorrow.
[2018-03-10] MEDS: GUAIFENESIN/D-METHORPHAN (200-20 MG) SYRUP 10 ML PO PRN (23:50)
[2018-03-11] MEDS: HYDROMORPHONE HCL INJ/PF 2 MG/ML AMPULE IV PRN ×7 (00:24→23:02)
[2018-03-11] MEDS: CEFAZOLIN 1 GM/D5W RTU 1 GM/50 ML RTUPB IV SCH ×4 (03:13→23:02)
[2018-03-11] MEDS: PANTOPRAZOLE SODIUM 40 MG VIAL IV SCH ×2 (05:48→17:28)
[2018-03-11 06:14] LABS: HEMATOCRIT 40.7 % (37.9-51.0); MEAN CORPUSCULAR HEMOGLOBIN 33.5 pg (27.0-33.4); MEAN CORPUSCULAR HGB CONC 34.4 g/dL (32.0-36.0); MEAN CORPUSCULAR VOLUME 97 fl (80-97); PLATELET COUNT 162 10^3/uL (150-450); RED BLOOD COUNT 4.19 10^6/uL (4.35-5.55); RED CELL DISTRIBUTION WIDTH 13.7 % (11.5-14.0); WHITE BLOOD COUNT 3.5 10^3/uL (4.0-10.5)
[2018-03-11 06:42] LABS: ALANINE AMINOTRANSFERASE 23 U/L (21-72); ALBUMIN 2.9 g/dL (3.5-5.0); ALKALINE PHOSPHATASE 38 U/L (38-126); ANION GAP 12 (5-19); ASPARTATE AMINO TRANSFERASE 23 U/L (17-59); BILIRUBIN,DIRECT 0.3 mg/dL (0.0-0.4); BILIRUBIN,TOTAL 0.7 mg/dL (0.2-1.3); BLOOD UREA NITROGEN 11 mg/dL (7-20); CALCIUM 7.9 mg/dL (8.4-10.2); CARBON DIOXIDE 24 mmol/L (22-30); CHLORIDE 103 mmol/L (98-107); GLUCOSE 108 mg/dL (75-110); POTASSIUM 3.5 mmol/L (3.6-5.0); SODIUM 138.6 mmol/L (137-145); TOTAL PROTEIN 5.7 g/dL (6.3-8.2)
[2018-03-11] MEDS: DEXTROSE 5%-NORMAL SALINE 1,000 ML IV PRN (07:59)
--- NOTE | 2018-03-11 09:45 | PDOC PROGRESS REPORT ---
Subjective Progress Note for:: 03/11/18 Subjective:: hungry. less pains Reason For Visit: PERFORATED DUODENAL ULCER Physical Exam Vital Signs: Temp Pulse Resp BP Pulse Ox 98.5 F 75 20 137/80 H 95 03/11/18 03:42 03/11/18 07:00 03/11/18 03:42 03/11/18 03:42 03/11/18 03:42 Intake & Output 03/10/18 03/11/18 03/12/18 06:59 06:59 06:59 Intake Total 2080 4712.4 Output Total 1835 4270 Balance 245 442.4 Weight 76.9 kg 64.9 kg Exam: abd is soft non distended. Minimal tenderness. NGT in place Results Laboratory Results: 03/11/18 05:35 03/11/18 05:35 03/11/18 03/11/18 05:35 05:35 WBC 3.5 L RBC 4.19 L Hgb 14.0 Hct 40.7 MCV 97 MCH 33.5 H MCHC 34.4 RDW 13.7 Plt Count 162 Sodium 138.6 Potassium 3.5 L Chloride 103 Carbon Dioxide 24 Anion Gap 12 BUN 11 Creatinine 0.65 Est GFR ( Amer) > 60 Est GFR (Non-Af Amer) > 60 Glucose 108 Calcium 7.9 L Total Bilirubin 0.7 AST 23 ALT 23 Alkaline Phosphatase 38 Total Protein 5.7 L Albumin 2.9 L Impressions: Acute Abdomen Series 03/08/18 14:32 IMPRESSION: 1. Small right pleural effusion. 2. Abnormal air lucency which appears to be located beneath the right hemidiaphragm, concerning although not definite for intra-abdominal free air. Recommend CT to further evaluate. 3. Multiple gas-filled, distended loops of bowel in the left hemiabdomen measuring up to 5.2 cm. There is additional scattered gas present to the rectum. Findings may reflect a partial or developing small bowel obstruction. Recommend CT to further evaluate. Abdomen/Pelvis CT 03/08/18 17:44 IMPRESSION: 1. Distal small bowel obstruction. 2. There is some free fluid in the abdomen. 3. There is a tiny nonobstructing intrarenal calculus on the right. Assessment & Plan - Inpatient Certification Medical Necessity: Need For IV Fluids, Need for IV Antibiotics - Plan Summary Plan Summary: For gastrograffin swallow to check any leak prior to D/C NGT
[2018-03-11] MEDS: GUAIFENESIN/D-METHORPHAN (200-20 MG) SYRUP 10 ML PO PRN (10:53)
[2018-03-11] MEDS: ENOXAPARIN SODIUM INJ 40 MG/0.4 ML DISP.SYRIN SUBCUT SCH (10:56)
[2018-03-11] MEDS: NICOTINE 21 MG/24 HR PATCH.TD24 TD SCH (10:56)
--- NOTE | 2018-03-11 11:42 | RADIOLOGY REPORT (SQ) ---
EXAM DESCRIPTION: CT ABD/PELVIS NO ORAL OR IV COMPLETED DATE/TIME: 03/11/2018 10:37 am REASON FOR STUDY: post repair of duodenal ulcer perforation , post Gastrografin upper GI, assess for leak COMPARISON: CT abdomen pelvis 03/08/2018 TECHNIQUE: CT scan of the abdomen and pelvis performed without intravenous contrast. Gastrografin u pper GI was performed immediately prior to the CT. Images reviewed with lung, soft tissue, and bone windows. Reconstructed coronal and sagittal MPR images reviewed. All images stored on PACS. All CT scanners at this facility use dose modulation, iterative reconstruction, and/or weight based d osing when appropriate to reduce radiation dose to as low as reasonably achievable (ALARA). [facility]: Dose Right [facility]: CareDose [facility]: Dose Right [facility]: Teradose 4D [facility]: Smart Yieldex RADIATION DOSE: CT Rad equipment meets quality standard of care and radiation dose reduction techniq ues were employed. CTDIvol: 5.3 mGy. DLP: 309 mGy-cm.mGy. LIMITATIONS: None. FINDINGS: Patient is post repair of a perforated duodenum ulcer. Surgical drains are present in the right upper quadrant. There is a nasogastric tube with the tip and side port in the stomach. Gastr ografin was instilled through the nasogastric tube into the patient's stomach. There is no extravasa tion of the oral Gastrografin from the gastrointestinal tract. No free intraperitoneal air or fluid. Probable ileus, with mild distention of small bowel loops in the upper abdomen, Gastrografin instille d into the patient's nasogastric tube is seen in the ascending colon in a nonobstructive pattern. LOWER CHEST: Small bilateral pleural effusions with bibasilar consolidation likely atelectasis. NON-CONTRASTED LIVER, SPLEEN, ADRENALS: Evaluation limited by lack of IV contrast. No identified sign ificant masses. PANCREAS: No masses. No peripancreatic inflammatory changes. GALLBLADDER: No identified stones by CT criteria. No inflammatory changes to suggest cholecystitis. RIGHT KIDNEY AND URETER: No suspicious masses. Assessment limited by lack of IV contrast. No signif icant calcifications. No hydronephrosis or hydroureter. LEFT KIDNEY AND URETER: No suspicious masses. Assessment limited by lack of IV contrast. No signifi cant calcifications. No hydronephrosis or hydroureter. AORTA AND RETROPERITONEUM: No aneurysm. No retroperitoneal masses or adenopathy. BOWEL AND PERITONEAL CAVITY: As above APPENDIX: Normal. PELVIS, BLADDER, AND ABDOMINAL WALL:No abnormal masses. No free fluid. Bladder normal. BONES: No significant findings. OTHER: No other significant finding. IMPRESSION: No leakage of contrast from the repaired duodenum ulcer. No CT evidence of bowel obstruction, probable postop ileus. COMMENT: Quality ID # [id number]: Final reports with documentation of one or more dose reduction techniques (e.g., Automated exposure control, adjustment of the mA and/or kV according to patient size, use of iterative reconstruction technique) TECHNICAL DOCUMENTATION: JOB ID: [id number] [employer]- All Rights Reserved Reading location - IP/workstation name: [email or web address]
[2018-03-11] MEDS: FLUCONAZOLE 100 MG in CONTAINER,EMPTY 1 EACH IV SCH (12:09)
--- NOTE | 2018-03-11 12:20 | RADIOLOGY REPORT (SQ) ---
EXAM DESCRIPTION: UGI SERIES COMPLETED DATE/TIME: 03/11/2018 11:55 am REASON FOR STUDY: eval. duodernal upper repair COMPARISON: None. TECHNIQUE: Under fluoroscopic guidance, Gastrografin was instilled through the patient's pre-existin g nasogastric tube. Fluoroscopic spot images and routine radiographic images acquired and stored on PACS. LIMITATIONS: None. FLUOROSCOPY TIME: FLUORO TIME: 1 minutes 40 seconds 28 digital images saved to PACS. FINDINGS: Gastrografin was instilled through the patient's pre-existing nasogastric tube. There is no extravasation of contrast from the duodenum. No leakage of contrast into right upper jillian drant surgical drains. There is decreased motility of the stomach and small bowel, likely postoperative ileus. Findings were discussed with Dr. Thompson IMPRESSION: No extravasation of contrast from the duodenum ulcer repair site COMMENT: Quality ID 145: Final reports for procedures using fluoroscopy that document radiation exp osure indices, or exposure time and number of fluorographic images (if radiation exposure indices are not available) TECHNICAL DOCUMENTATION: JOB ID: [id number] [employer]- All Rights Reserved Reading location - IP/workstation name: [email or web address]
[2018-03-11] MEDS: THIAMINE HCL 100 MG, FOLIC ACID 1 MG in NORMAL SALINE 250 ML IV SCH (13:48)
[2018-03-11] MEDS: ONDANSETRON HCL INJ/PF 4 MG/2 ML SDV IV PRN ×2 (15:39→19:53)
--- NOTE | 2018-03-11 17:10 | Progress Note ---
Provider Note Provider Note: ID Consult Note Asked to review patient's chart by Pharmacy. Pt not seen or examined. Reviewed VS, imaging reports, provider reports, lab results. Mr Muhammad is a 52 year old man with PMH including alcohol use, prior IVDU, and HCV infection who presented on 03/08 with sx of about 1 day of abdominal pain with associated sense of abdominal distention and nausea. Exam notable for diffuse abdominal tenderness with guarding and rebound. Acute abdominal series showed free air and some evidence of a partial or developing small bowel ileus. He required ex- lap with omental patch for perforated duodenal ulcer, performed on 03/09. Pt was found in the OR to have copious bilious fluid throughout the peritoneal cavity. No other areas of perforation were found running the bowel or suggestion of any mechanical obstruction. Two JOSEPH drains were placed in the region of the duodenum. Blood cultures are negative apart from one set that showed growth of Staphylococcus epidermidis, which is most consistent with a contaminant. Pt had additional imaging studies that showed no leak at duodenal repair site and probable ileus with mild distention of small bowel loops in the upper abdomen, no free intraperitoneal air or fluid, no peripancreatic inflammatory changes; lung bases showed small b/l pleural effusions with bibasilar consolidation read as likely atelectasis. Pt had fever to 100.5 F yesterday 03/10. He is hemodynamically stable. He is noted to have soft abdomen that is nondistended and has minimal tenderness. Impression/Recommendations - Pt had duodenal perforation with timely repair and washout. Generally, if upper GI perforation is operated on within 24h, antimicrobial therapy can be limited to 24h or less. Empiric antifungal therapy can be considered for upper GI source if pt is critically ill, but having received appropriate surgical management, pt is improving and has been stable. Pt had one post-op fever recorded within 48h. Most fever within 48h of major surgery is noninfectious in etiology. It may be related to inflammation from tissue trauma, if there is no other apparent etiology based on history/physical. - Suggest discontinuing Ancef and Diflucan at this point. Teddy Kent MD [facility] Infectious Diseases pager [phone]
--- NOTE | 2018-03-11 19:33 | PDOC PROGRESS REPORT ---
Subjective Progress Note for:: 03/11/18 Subjective:: MOHSEN HERR is a 52 year old male with history of tobacco and alcohol dependence admitted through the emergency room for abdominal pain found to have free air and small bowel obstruction on CT imaging. Patient is postop day 0 found to have a perforated duodenal ulcer. Patient seen in the ICU postoperatively with residual perioperative analgesia. Patient admits feeling much better, denies chest pain, palpitations, nausea or vomiting. He denies a history of alcohol withdrawal or seizure however is unable to recall a 3-day duration of sobriety. 03/10/2018. Day 1 post exploratory laparotomy with omental patch and abdominal washout for perforated duodenal ulcer. On my encounter patient is resting comfortably in his bed with a NG tube in is stating that he is still having persistent abdominal pain and it is worsened by coughing. He is passing gas however he has not had any bowel movement. He is denying any fever nausea, vomiting, diarrhea, constipation or any urinary symptoms. 03/11/2018. Day 2 post exploratory laparotomy with omental mass patch and abdominal washout. No acute events overnight. Patient comfortably is sitting in his bed in no acute distress abdominal pain is improving he is able to pass gas has not had any bowel movements. Saying it hurts when he tries to cough. Denies any shortness of breath, fever, chills, nausea, vomiting, diarrhea or any urinary symptoms. Physical examination lungs are clear to auscultation, he has some guarding on abdominal examination his wound is covered with clean dressing there are 2 drainages with minimal drainage of clear red fluid. Reason For Visit: PERFORATED DUODENAL ULCER Physical Exam Vital Signs: Temp Pulse Resp BP Pulse Ox 98.5 F 75 20 137/80 H 95 03/11/18 03:42 03/11/18 07:00 03/11/18 03:42 03/11/18 03:42 03/11/18 03:42 Intake & Output 03/10/18 03/11/18 03/12/18 06:59 06:59 06:59 Intake Total 2080 4712.4 Output Total 1835 4270 Balance 245 442.4 Weight 76.9 kg 64.9 kg General appearance: PRESENT: no acute distress, well-developed, well-nourished Respiratory exam: PRESENT: clear to auscultation terrance. ABSENT: rales, rhonchi, wheezes Cardiovascular exam: PRESENT: RRR. ABSENT: diastolic murmur, rubs, systolic murmur GI/Abdominal exam: PRESENT: firm, guarding, hypoactive bowel sounds, other - Surgical wound covered with clean dressing. Patient has 2 drainage tube which is draining clear reddish fluid.. ABSENT: distended, mass, organolmegaly, rebound, tenderness Neurological exam: PRESENT: alert, awake, oriented to person, oriented to place , oriented to time, oriented to situation, CN II-XII grossly intact. ABSENT: motor sensory deficit Results Laboratory Results: 03/11/18 05:35 03/11/18 05:35 03/11/18 03/11/18 05:35 05:35 WBC 3.5 L RBC 4.19 L Hgb 14.0 Hct 40.7 MCV 97 MCH 33.5 H MCHC 34.4 RDW 13.7 Plt Count 162 Sodium 138.6 Potassium 3.5 L Chloride 103 Carbon Dioxide 24 Anion Gap 12 BUN 11 Creatinine 0.65 Est GFR ( Amer) > 60 Est GFR (Non-Af Amer) > 60 Glucose 108 Calcium 7.9 L Total Bilirubin 0.7 AST 23 ALT 23 Alkaline Phosphatase 38 Total Protein 5.7 L Albumin 2.9 L Impressions: Acute Abdomen Series 03/08/18 14:32 IMPRESSION: 1. Small right pleural effusion. 2. Abnormal air lucency which appears to be located beneath the right hemidiaphragm, concerning although not definite for intra-abdominal free air. Recommend CT to further evaluate. 3. Multiple gas-filled, distended loops of bowel in the left hemiabdomen measuring up to 5.2 cm. There is additional scattered gas present to the rectum. Findings may reflect a partial or developing small bowel obstruction. Recommend CT to further evaluate. Abdomen/Pelvis CT 03/08/18 17:44 IMPRESSION: 1. Distal small bowel obstruction. 2. There is some free fluid in the abdomen. 3. There is a tiny nonobstructing intrarenal calculus on the right. Assessment & Plan - Diagnosis (1) Perforated duodenal ulcer Is this a current diagnosis for this admission?: Yes Plan: Defer management to surgery. (2) Tobacco dependence Is this a current diagnosis for this admission?: Yes Plan: Counseled on quitting. Nicotine patch. (3) Alcohol dependence Is this a current diagnosis for this admission?: Yes Plan: Monitor for withdrawals. No sign of withdrawals yet. Continue as needed benzo. Technique thiamine, folic acid, B12. (4) NELIDA (acute kidney injury) Is this a current diagnosis for this admission?: Yes Plan: Likely prerenal due to dehydration. Resolved. Monitor volume status and electrolytes. CMP tomorrow. (5) Staphylococcus epidermidis bacteremia Is this a current diagnosis for this admission?: Yes Plan: Cultures growing staph dermatitis 1/ likely contamination.
[2018-03-11] MEDS: BENZOCAINE/MENTHOL SORE THROAT LOZENGE BUCCAL PRN (19:55)
[2018-03-12] MEDS: HYDROMORPHONE HCL INJ/PF 2 MG/ML AMPULE IV PRN ×7 (01:57→22:52)
[2018-03-12] MEDS: CEFAZOLIN 1 GM/D5W RTU 1 GM/50 ML RTUPB IV SCH ×3 (02:00→15:26)
[2018-03-12] MEDS: GUAIFENESIN/D-METHORPHAN (200-20 MG) SYRUP 10 ML PO PRN ×3 (02:02→22:52)
[2018-03-12] MEDS: PANTOPRAZOLE SODIUM 40 MG VIAL IV SCH ×2 (05:29→16:43)
[2018-03-12 07:06] LABS: ABSOLUTE EOSINOPHILS # (AUTO) 0.1 10^3/uL (0.0-0.6); ABSOLUTE LYMPHOCYTES (AUTO) 0.5 10^3/uL (0.5-4.7); ABSOLUTE MONOCYTES (AUTO) 0.6 10^3/uL (0.1-1.4); ABSOLUTE NEUT (AUTO) 4.1 10^3/uL (1.7-8.2); BASOPHILS % (AUTO) 0.3 % (0-2); HEMATOCRIT 44.7 % (37.9-51.0); HEMOGLOBIN 15.6 g/dL (13.5-17.0); MEAN CORPUSCULAR HEMOGLOBIN 33.2 pg (27.0-33.4); MEAN CORPUSCULAR HGB CONC 34.8 g/dL (32.0-36.0); MEAN CORPUSCULAR VOLUME 95 fl (80-97); MONOCYTES % (AUTO) 11.8 % (3-13); PLATELET COUNT 187 10^3/uL (150-450); RED BLOOD COUNT 4.69 10^6/uL (4.35-5.55); SEGMENTED NEUTROPHILS % (AUTO) 77.9 % (42-78); TOTAL CELLS COUNTED % (AUTO) 100 %; WHITE BLOOD COUNT 5.3 10^3/uL (4.0-10.5)
[2018-03-12 09:30] LABS: ALANINE AMINOTRANSFERASE 27 U/L (21-72); ALBUMIN 2.7 g/dL (3.5-5.0); ALKALINE PHOSPHATASE 44 U/L (38-126); ANION GAP 10 (5-19); ASPARTATE AMINO TRANSFERASE 24 U/L (17-59); BILIRUBIN,DIRECT 0.8 mg/dL (0.0-0.4); BILIRUBIN,TOTAL 1.3 mg/dL (0.2-1.3); BLOOD UREA NITROGEN 12 mg/dL (7-20); CARBON DIOXIDE 26 mmol/L (22-30); CHLORIDE 101 mmol/L (98-107); GLUCOSE 113 mg/dL (75-110); POTASSIUM 3.5 mmol/L (3.6-5.0); SODIUM 136.8 mmol/L (137-145); TOTAL PROTEIN 5.5 g/dL (6.3-8.2)
[2018-03-12] MEDS: ENOXAPARIN SODIUM INJ 40 MG/0.4 ML DISP.SYRIN SUBCUT SCH (09:48)
[2018-03-12] MEDS: FLUCONAZOLE 100 MG in CONTAINER,EMPTY 1 EACH IV SCH (09:48)
[2018-03-12] MEDS: NICOTINE 21 MG/24 HR PATCH.TD24 TD SCH (09:48)
[2018-03-12] MEDS: THIAMINE HCL 100 MG, FOLIC ACID 1 MG in NORMAL SALINE 250 ML IV SCH (09:48)
--- NOTE | 2018-03-12 10:21 | PDOC PROGRESS REPORT ---
Subjective Progress Note for:: 03/12/18 Subjective:: MOHSEN HERR is a 52 year old male with history of tobacco and alcohol dependence admitted through the emergency room for abdominal pain found to have free air and small bowel obstruction on CT imaging. Patient is postop day 0 found to have a perforated duodenal ulcer. Patient seen in the ICU postoperatively with residual perioperative analgesia. Patient admits feeling much better, denies chest pain, palpitations, nausea or vomiting. He denies a history of alcohol withdrawal or seizure however is unable to recall a 3-day duration of sobriety. 03/10/2018. Day 1 post exploratory laparotomy with omental patch and abdominal washout for perforated duodenal ulcer. On my encounter patient is resting comfortably in his bed with a NG tube in is stating that he is still having persistent abdominal pain and it is worsened by coughing. He is passing gas however he has not had any bowel movement. He is denying any fever nausea, vomiting, diarrhea, constipation or any urinary symptoms. 03/11/2018. Day 2 post exploratory laparotomy with omental mass patch and abdominal washout. No acute events overnight. Patient comfortably is sitting in his bed in no acute distress abdominal pain is improving he is able to pass gas has not had any bowel movements. Saying it hurts when he tries to cough. Denies any shortness of breath, fever, chills, nausea, vomiting, diarrhea or any urinary symptoms. Physical examination lungs are clear to auscultation, he has some guarding on abdominal examination his wound is covered with clean dressing there are 2 drainages with minimal drainage of clear red fluid. 03/12/2018. Day 3 post exploratory laparotomy with omental mass patch and abdominal washout. Acute events overnight. Patient states that he could not sleep because of abdominal pain and the fact that the nasogastric tube is bothering him. He is having normal bowel and bladder function and he has been ambulatory. He is stating that he is very hungry. His cough has not improved significantly. He is denying any fever, nausea, vomiting, diarrhea, constipation or any urinary symptoms. Systolic blood pressure are in 130s-140s, he has been afebrile for the last 48 hours, respiratory rate of 16-20s, pulse rate of 60-70, saturating 96% on room air. His CBC looks within normal limits CMP has potassium 3.5 sodium of 136.8 otherwise unremarkable. Cultures growing staph epidermidis 04/08 could likely be due to contamination. ID has reviewed his chart as recommended discontinuation of antibiotics. Reason For Visit: PERFORATED DUODENAL ULCER Physical Exam Vital Signs: Temp Pulse Resp BP Pulse Ox 97.9 F 68 20 129/88 H 96 03/12/18 09:01 03/12/18 09:01 03/12/18 09:01 03/12/18 09:01 03/12/18 09:01 Intake & Output 03/11/18 03/12/18 03/13/18 06:59 06:59 06:59 Intake Total 4712.4 1501.2 Output Total 4270 1925 Balance 442.4 -423.8 Weight 64.9 kg 61.4 kg General appearance: PRESENT: no acute distress, well-developed, well-nourished Head exam: PRESENT: atraumatic, normocephalic Respiratory exam: PRESENT: clear to auscultation terrance. ABSENT: rales, rhonchi, wheezes Cardiovascular exam: PRESENT: RRR. ABSENT: diastolic murmur, rubs, systolic murmur Pulses: PRESENT: normal dorsalis pedis pul GI/Abdominal exam: PRESENT: firm, guarding, normal bowel sounds, soft, other - Patient has 2 drains which are draining clear red fluid. Surgical wound is covered with clear dressing no sign of discharge or infection.. ABSENT: distended, mass, organolmegaly, rebound, tenderness Extremities exam: PRESENT: full ROM. ABSENT: calf tenderness, clubbing, pedal edema Results Laboratory Results: 03/12/18 06:52 03/12/18 08:38 03/12/18 03/12/18 03/12/18 06:52 06:52 08:38 WBC 5.3 RBC 4.69 Hgb 15.6 Hct 44.7 MCV 95 MCH 33.2 MCHC 34.8 RDW 14.0 Plt Count 187 Seg Neutrophils % 77.9 Lymphocytes % 9.0 L Monocytes % 11.8 Eosinophils % 1.0 Basophils % 0.3 Absolute Neutrophils 4.1 Absolute Lymphocytes 0.5 Absolute Monocytes 0.6 Absolute Eosinophils 0.1 Absolute Basophils 0.0 Sodium Cancelled 136.8 L Potassium Cancelled 3.5 L Chloride Cancelled 101 Carbon Dioxide Cancelled 26 Anion Gap Cancelled 10 BUN Cancelled 12 Creatinine Cancelled 0.62 Est GFR ( Amer) Cancelled > 60 Est GFR (Non-Af Amer) Cancelled > 60 Glucose Cancelled 113 H Calcium Cancelled 8.0 L Magnesium Cancelled 1.9 Total Bilirubin Cancelled 1.3 AST Cancelled 24 ALT Cancelled 27 Alkaline Phosphatase Cancelled 44 Total Protein Cancelled 5.5 L Albumin Cancelled 2.7 L 03/08/18 20:45 Blood Blood Culture - Final Staphylococcus Epidermidis Impressions: Acute Abdomen Series 03/08/18 14:32 IMPRESSION: 1. Small right pleural effusion. 2. Abnormal air lucency which appears to be located beneath the right hemidiaphragm, concerning although not definite for intra-abdominal free air. Recommend CT to further evaluate. 3. Multiple gas-filled, distended loops of bowel in the left hemiabdomen measuring up to 5.2 cm. There is additional scattered gas present to the rectum. Findings may reflect a partial or developing small bowel obstruction. Recommend CT to further evaluate. Abdomen/Pelvis CT 03/11/18 00:00 IMPRESSION: No leakage of contrast from the repaired duodenum ulcer. No CT evidence of bowel obstruction, probable postop ileus. Upper GI Series 03/11/18 00:00 IMPRESSION: No extravasation of contrast from the duodenum ulcer repair site Assessment & Plan - Diagnosis (1) Perforated duodenal ulcer Is this a current diagnosis for this admission?: Yes Plan: Defer management to surgery. (2) Tobacco dependence Is this a current diagnosis for this admission?: Yes Plan: Counseled on quitting. Nicotine patch. (3) Alcohol dependence Is this a current diagnosis for this admission?: Yes Plan: Monitor for withdrawals. No sign of withdrawals yet. Continue as needed benzo. Technique thiamine, folic acid, B12. (4) NELIDA (acute kidney injury) Is this a current diagnosis for this admission?: Yes Plan: Likely prerenal due to dehydration. Resolved. Monitor volume status and electrolytes. CMP tomorrow. (5) Staphylococcus epidermidis bacteremia Is this a current diagnosis for this admission?: Yes Plan: Cultures growing staph dermatitis 1/ likely contamination.
[2018-03-12] MEDS ORDERED: LANSOPRAZOLE 30 MG TAB.RAP.DR PO ONE (17:00)
[2018-03-12] MEDS ORDERED: CIPROFLOXACIN HCL 500 MG TABLET ONE (19:02)
[2018-03-12] MEDS: CIPROFLOXACIN HCL 500 MG TABLET PO SCH (19:35)
--- NOTE | 2018-03-12 19:40 | PDOC PROGRESS REPORT ---
Subjective Progress Note for:: 03/12/18 Subjective:: no pains and hungry Reason For Visit: PERFORATED DUODENAL ULCER Physical Exam Vital Signs: Temp Pulse Resp BP Pulse Ox 99.0 F 73 12 122/77 91 L 03/12/18 12:05 03/12/18 12:05 03/12/18 12:05 03/12/18 12:05 03/12/18 12:05 Intake & Output 03/11/18 03/12/18 03/13/18 06:59 06:59 06:59 Intake Total 4712.4 1501.2 401.2 Output Total 4270 1925 715 Balance 442.4 -423.8 -313.8 Weight 64.9 kg 61.4 kg Exam: NGT about 100 ccs Abd is soft and non tender Results Laboratory Results: 03/12/18 06:52 03/12/18 08:38 03/12/18 03/12/18 03/12/18 06:52 06:52 08:38 WBC 5.3 RBC 4.69 Hgb 15.6 Hct 44.7 MCV 95 MCH 33.2 MCHC 34.8 RDW 14.0 Plt Count 187 Seg Neutrophils % 77.9 Lymphocytes % 9.0 L Monocytes % 11.8 Eosinophils % 1.0 Basophils % 0.3 Absolute Neutrophils 4.1 Absolute Lymphocytes 0.5 Absolute Monocytes 0.6 Absolute Eosinophils 0.1 Absolute Basophils 0.0 Sodium Cancelled 136.8 L Potassium Cancelled 3.5 L Chloride Cancelled 101 Carbon Dioxide Cancelled 26 Anion Gap Cancelled 10 BUN Cancelled 12 Creatinine Cancelled 0.62 Est GFR ( Amer) Cancelled > 60 Est GFR (Non-Af Amer) Cancelled > 60 Glucose Cancelled 113 H Calcium Cancelled 8.0 L Magnesium Cancelled 1.9 Total Bilirubin Cancelled 1.3 AST Cancelled 24 ALT Cancelled 27 Alkaline Phosphatase Cancelled 44 Total Protein Cancelled 5.5 L Albumin Cancelled 2.7 L 03/08/18 20:45 Blood Blood Culture - Final Staphylococcus Epidermidis Impressions: Acute Abdomen Series 03/08/18 14:32 IMPRESSION: 1. Small right pleural effusion. 2. Abnormal air lucency which appears to be located beneath the right hemidiaphragm, concerning although not definite for intra-abdominal free air. Recommend CT to further evaluate. 3. Multiple gas-filled, distended loops of bowel in the left hemiabdomen measuring up to 5.2 cm. There is additional scattered gas present to the rectum. Findings may reflect a partial or developing small bowel obstruction. Recommend CT to further evaluate. Abdomen/Pelvis CT 03/11/18 00:00 IMPRESSION: No leakage of contrast from the repaired duodenum ulcer. No CT evidence of bowel obstruction, probable postop ileus. Upper GI Series 03/11/18 00:00 IMPRESSION: No extravasation of contrast from the duodenum ulcer repair site Assessment & Plan - Time Time Spent with patient: 15-24 minutes - Inpatient Certification Medical Necessity: Need for IV Antibiotics, Risk of Complication if Not Cared For in Hospital - Plan Summary Plan Summary: D/C NGT Start clears Continue Antibiotics
[2018-03-13] MEDS: HYDROMORPHONE HCL INJ/PF 2 MG/ML AMPULE IV PRN ×3 (02:16→08:27)
[2018-03-13 06:53] LABS: ABSOLUTE BASOPHILS # (AUTO) 0.1 10^3/uL (0.0-0.2); ABSOLUTE EOSINOPHILS # (AUTO) 0.1 10^3/uL (0.0-0.6); ABSOLUTE LYMPHOCYTES (AUTO) 0.6 10^3/uL (0.5-4.7); ABSOLUTE MONOCYTES (AUTO) 0.6 10^3/uL (0.1-1.4); ABSOLUTE NEUT (AUTO) 5.6 10^3/uL (1.7-8.2); BASOPHILS % (AUTO) 0.8 % (0-2); EOSINOPHILS % (AUTO) 1.1 % (0-6); HEMATOCRIT 46.9 % (37.9-51.0); HEMOGLOBIN 16.4 g/dL (13.5-17.0); LYMPHOCYTES % (AUTO) 8.8 % (13-45); MEAN CORPUSCULAR HEMOGLOBIN 33.7 pg (27.0-33.4); MEAN CORPUSCULAR VOLUME 96 fl (80-97); MONOCYTES % (AUTO) 9.1 % (3-13); PLATELET COUNT 182 10^3/uL (150-450); RED BLOOD COUNT 4.87 10^6/uL (4.35-5.55); RED CELL DISTRIBUTION WIDTH 13.6 % (11.5-14.0); SEGMENTED NEUTROPHILS % (AUTO) 80.2 % (42-78); TOTAL CELLS COUNTED % (AUTO) 100 %
[2018-03-13 07:08] LABS: ALANINE AMINOTRANSFERASE 32 U/L (21-72); ALBUMIN 3.2 g/dL (3.5-5.0); ALKALINE PHOSPHATASE 69 U/L (38-126); ANION GAP 13 (5-19); ASPARTATE AMINO TRANSFERASE 48 U/L (17-59); BILIRUBIN,DIRECT 0.5 mg/dL (0.0-0.4); BILIRUBIN,TOTAL 0.9 mg/dL (0.2-1.3); BLOOD UREA NITROGEN 12 mg/dL (7-20); CALCIUM 8.4 mg/dL (8.4-10.2); CARBON DIOXIDE 26 mmol/L (22-30); CHLORIDE 100 mmol/L (98-107); GLUCOSE 109 mg/dL (75-110); POTASSIUM 3.2 mmol/L (3.6-5.0); SODIUM 138.8 mmol/L (137-145); TOTAL PROTEIN 6.6 g/dL (6.3-8.2)
[2018-03-13] MEDS ORDERED: POTASSI CL 20 MEQ/50 ML RIDER 20 MEQ/50 ML RTUPB IV ONE (09:15)
[2018-03-13] MEDS: LANSOPRAZOLE 30 MG TAB.RAP.DR PO SCH ×2 (09:21→16:59)
[2018-03-13] MEDS: NICOTINE 21 MG/24 HR PATCH.TD24 TD SCH (09:21)
[2018-03-13] MEDS: ENOXAPARIN SODIUM INJ 40 MG/0.4 ML DISP.SYRIN SUBCUT SCH (09:22)
[2018-03-13] MEDS: GUAIFENESIN/D-METHORPHAN (200-20 MG) SYRUP 10 ML PO PRN (09:23)
[2018-03-13] MEDS ORDERED: MORPHINE SULFATE 10 MG/ML INJ IV PRN (09:51)
[2018-03-13] MEDS: CIPROFLOXACIN HCL 500 MG TABLET PO SCH ×2 (11:16→16:59)
[2018-03-13] MEDS ORDERED: POTASSIUM CHLORIDE 20 MEQ/15 ML UDCUP PO ONE (11:30)
[2018-03-13] MEDS: FLUCONAZOLE 100 MG TABLET PO SCH (11:48)
[2018-03-13] MEDS: THIAMINE HCL 100 MG TABLET PO SCH (11:48)
[2018-03-13] MEDS: FLUCONAZOLE 100 MG in CONTAINER,EMPTY 1 EACH IV SCH (12:15)
[2018-03-13] MEDS: THIAMINE HCL 100 MG, FOLIC ACID 1 MG in NORMAL SALINE 250 ML IV SCH (12:15)
[2018-03-13] MEDS: OXYCODONE-ACETAMINOPHEN 5-325 MG TABLET PO PRN ×3 (12:48→20:40)
--- NOTE | 2018-03-13 14:32 | PDOC PROGRESS REPORT ---
Subjective Progress Note for:: 03/13/18 Subjective:: MOHSEN HERR is a 52 year old male with history of tobacco and alcohol dependence admitted through the emergency room for abdominal pain found to have free air and small bowel obstruction on CT imaging. Patient is postop day 0 found to have a perforated duodenal ulcer. Patient seen in the ICU postoperatively with residual perioperative analgesia. Patient admits feeling much better, denies chest pain, palpitations, nausea or vomiting. He denies a history of alcohol withdrawal or seizure however is unable to recall a 3-day duration of sobriety. 03/10/2018. Day 1 post exploratory laparotomy with omental patch and abdominal washout for perforated duodenal ulcer. On my encounter patient is resting comfortably in his bed with a NG tube in is stating that he is still having persistent abdominal pain and it is worsened by coughing. He is passing gas however he has not had any bowel movement. He is denying any fever nausea, vomiting, diarrhea, constipation or any urinary symptoms. 03/11/2018. Day 2 post exploratory laparotomy with omental mass patch and abdominal washout. No acute events overnight. Patient comfortably is sitting in his bed in no acute distress abdominal pain is improving he is able to pass gas has not had any bowel movements. Saying it hurts when he tries to cough. Denies any shortness of breath, fever, chills, nausea, vomiting, diarrhea or any urinary symptoms. Physical examination lungs are clear to auscultation, he has some guarding on abdominal examination his wound is covered with clean dressing there are 2 drainages with minimal drainage of clear red fluid. 03/12/2018. Day 3 post exploratory laparotomy with omental mass patch and abdominal washout. Acute events overnight. Patient states that he could not sleep because of abdominal pain and the fact that the nasogastric tube is bothering him. He is having normal bowel and bladder function and he has been ambulatory. He is stating that he is very hungry. His cough has not improved significantly. He is denying any fever, nausea, vomiting, diarrhea, constipation or any urinary symptoms. Systolic blood pressure are in 130s-140s, he has been afebrile for the last 48 hours, respiratory rate of 16-20s, pulse rate of 60-70, saturating 96% on room air. His CBC looks within normal limits CMP has potassium 3.5 sodium of 136.8 otherwise unremarkable. Cultures growing staph epidermidis 04/08 could likely be due to contamination. ID has reviewed his chart as recommended discontinuation of antibiotics. 03/13/2018. Day 4 status post exploratory laparotomy with omental mass patch and abdominal washout. Nasogastric tube was removed and patient is p.o. tolerant. He has one bowel movement. He is ambulatory p.o. tolerant having normal bowel and bladder function. Denies any fever, chills, nausea, vomiting, diarrhea, called constipation except for persistent abdominal pain which is improving since the day of admission. Patient medically stable, vitals within normal limits, CBC CMP within normal limits patient has been afebrile. Will sign off. Thank you for interesting consult. Please do not hesitate to reconsult if needed thank you Reason For Visit: PERFORATED DUODENAL ULCER Physical Exam Vital Signs: Temp Pulse Resp BP Pulse Ox 98.0 F 84 18 119/78 100 03/13/18 11:42 03/13/18 11:42 03/13/18 11:42 03/13/18 11:42 03/13/18 11:42 Intake & Output 03/12/18 03/13/18 03/14/18 06:59 06:59 06:59 Intake Total 1501.2 401.2 2250 Output Total 1925 1025 Balance -423.8 -623.8 2250 Weight 61.4 kg 62.5 kg General appearance: PRESENT: no acute distress, well-developed, well-nourished Head exam: PRESENT: atraumatic, normocephalic Respiratory exam: PRESENT: clear to auscultation terrance. ABSENT: rales, rhonchi, wheezes GI/Abdominal exam: PRESENT: firm - Surgical wound covered with clean dressing. No sign of discharge or infection. Patient still has 2 drains which are draining clear red fluid., normal bowel sounds, soft. ABSENT: distended, guarding, mass, organolmegaly, rebound, tenderness Results Laboratory Results: 03/13/18 06:25 03/13/18 06:25 03/13/18 03/13/18 06:25 06:25 WBC 7.0 RBC 4.87 Hgb 16.4 Hct 46.9 MCV 96 MCH 33.7 H MCHC 35.0 RDW 13.6 Plt Count 182 Seg Neutrophils % 80.2 H Lymphocytes % 8.8 L Monocytes % 9.1 Eosinophils % 1.1 Basophils % 0.8 Absolute Neutrophils 5.6 Absolute Lymphocytes 0.6 Absolute Monocytes 0.6 Absolute Eosinophils 0.1 Absolute Basophils 0.1 Sodium 138.8 Potassium 3.2 L Chloride 100 Carbon Dioxide 26 Anion Gap 13 BUN 12 Creatinine 0.70 Est GFR ( Amer) > 60 Est GFR (Non-Af Amer) > 60 Glucose 109 Calcium 8.4 Magnesium 1.9 Total Bilirubin 0.9 AST 48 ALT 32 Alkaline Phosphatase 69 Total Protein 6.6 Albumin 3.2 L Impressions: Acute Abdomen Series 03/08/18 14:32 IMPRESSION: 1. Small right pleural effusion. 2. Abnormal air lucency which appears to be located beneath the right hemidiaphragm, concerning although not definite for intra-abdominal free air. Recommend CT to further evaluate. 3. Multiple gas-filled, distended loops of bowel in the left hemiabdomen measuring up to 5.2 cm. There is additional scattered gas present to the rectum. Findings may reflect a partial or developing small bowel obstruction. Recommend CT to further evaluate. Abdomen/Pelvis CT 03/11/18 00:00 IMPRESSION: No leakage of contrast from the repaired duodenum ulcer. No CT evidence of bowel obstruction, probable postop ileus. Upper GI Series 03/11/18 00:00 IMPRESSION: No extravasation of contrast from the duodenum ulcer repair site Assessment & Plan - Diagnosis (1) Perforated duodenal ulcer Is this a current diagnosis for this admission?: Yes Plan: Defer management to surgery. (2) Tobacco dependence Is this a current diagnosis for this admission?: Yes Plan: Counseled on quitting. Nicotine patch. (3) Alcohol dependence Is this a current diagnosis for this admission?: Yes Plan: Monitor for withdrawals. No sign of withdrawals yet. Continue as needed benzo. Technique thiamine, folic acid, B12. (4) NELIDA (acute kidney injury) Is this a current diagnosis for this admission?: Yes Plan: Likely prerenal due to dehydration. Resolved. Monitor volume status and electrolytes. CMP tomorrow. (5) Staphylococcus epidermidis bacteremia Is this a current diagnosis for this admission?: Yes Plan: Cultures growing staph dermatitis 1/ likely contamination.
--- NOTE | 2018-03-13 19:58 | PDOC PROGRESS REPORT ---
Subjective Progress Note for:: 03/13/18 Subjective:: Incisional pains. Tolerating diet well Reason For Visit: PERFORATED DUODENAL ULCER Physical Exam Vital Signs: Temp Pulse Resp BP Pulse Ox 98.0 F 77 16 127/70 H 96 03/13/18 15:25 03/13/18 15:25 03/13/18 15:25 03/13/18 15:25 03/13/18 15:25 Intake & Output 03/12/18 03/13/18 03/14/18 06:59 06:59 06:59 Intake Total 1501.2 401.2 2250 Output Total 1925 1025 55 Balance -423.8 -623.8 2195 Weight 61.4 kg 62.5 kg Results Laboratory Results: 03/13/18 06:25 03/13/18 06:25 03/13/18 03/13/18 06:25 06:25 WBC 7.0 RBC 4.87 Hgb 16.4 Hct 46.9 MCV 96 MCH 33.7 H MCHC 35.0 RDW 13.6 Plt Count 182 Seg Neutrophils % 80.2 H Lymphocytes % 8.8 L Monocytes % 9.1 Eosinophils % 1.1 Basophils % 0.8 Absolute Neutrophils 5.6 Absolute Lymphocytes 0.6 Absolute Monocytes 0.6 Absolute Eosinophils 0.1 Absolute Basophils 0.1 Sodium 138.8 Potassium 3.2 L Chloride 100 Carbon Dioxide 26 Anion Gap 13 BUN 12 Creatinine 0.70 Est GFR ( Amer) > 60 Est GFR (Non-Af Amer) > 60 Glucose 109 Calcium 8.4 Magnesium 1.9 Total Bilirubin 0.9 AST 48 ALT 32 Alkaline Phosphatase 69 Total Protein 6.6 Albumin 3.2 L Impressions: Acute Abdomen Series 03/08/18 14:32 IMPRESSION: 1. Small right pleural effusion. 2. Abnormal air lucency which appears to be located beneath the right hemidiaphragm, concerning although not definite for intra-abdominal free air. Recommend CT to further evaluate. 3. Multiple gas-filled, distended loops of bowel in the left hemiabdomen measuring up to 5.2 cm. There is additional scattered gas present to the rectum. Findings may reflect a partial or developing small bowel obstruction. Recommend CT to further evaluate. Abdomen/Pelvis CT 03/11/18 00:00 IMPRESSION: No leakage of contrast from the repaired duodenum ulcer. No CT evidence of bowel obstruction, probable postop ileus. Upper GI Series 03/11/18 00:00 IMPRESSION: No extravasation of contrast from the duodenum ulcer repair site Assessment & Plan - Time Time Spent with patient: 15-24 minutes - Inpatient Certification Medical Necessity: Need for IV Antibiotics, Risk of Complication if Not Cared For in Hospital - Plan Summary Plan Summary: Continue to increase po intake possible discharge tomorrow
[2018-03-14] MEDS: OXYCODONE-ACETAMINOPHEN 5-325 MG TABLET PO PRN ×3 (00:13→11:17)
[2018-03-14] MEDS: GUAIFENESIN/D-METHORPHAN (200-20 MG) SYRUP 10 ML PO PRN ×2 (00:13→07:39)
[2018-03-14] MEDS: LANSOPRAZOLE 30 MG TAB.RAP.DR PO SCH (09:54)
[2018-03-14] MEDS: THIAMINE HCL 100 MG TABLET PO SCH (09:54)
[2018-03-14] MEDS: FLUCONAZOLE 100 MG TABLET PO SCH (09:54)
[2018-03-14] MEDS: CIPROFLOXACIN HCL 500 MG TABLET PO SCH (09:54)
[2018-03-14] MEDS: NICOTINE 21 MG/24 HR PATCH.TD24 TD SCH (09:55)
[2018-03-14] MEDS: ENOXAPARIN SODIUM INJ 40 MG/0.4 ML DISP.SYRIN SUBCUT SCH (09:55)
[2018-03-14 12:08] VITALS: BP 111/72
== END 2018-03-14 13:30 | disposition home or self-care (01) | DRG 329 ==
LOC: ER 13:04 → EH 20:23 → ICU 03-09 01:42 → 3S 03-10 06:42 → 4N 03-11 21:28
PROVIDERS: ADMIT Surgery; ATTEND Surgery
PROC: 0DU907Z Supplement Duodenum with Autologous Tissue Substitute, Open Approach (ICD-10-PCS; principal; 2018-03-09)
PROC: 3E0234Z Introduction of Serum, Toxoid and Vaccine into Muscle, Percutaneous Approach (ICD-10-PCS; 2018-03-14)
DX: K26.5 Chronic or unspecified duodenal ulcer with perforation (principal); K65.0 Generalized (acute) peritonitis; N17.9 Acute kidney failure, unspecified; R78.81 Bacteremia; K56.600 Partial intestinal obstruction, unspecified as to cause; M19.90 Unspecified osteoarthritis, unspecified site; B95.7 Other staphylococcus as the cause of diseases classified elsewhere; F10.20 Alcohol dependence, uncomplicated; F17.210 Nicotine dependence, cigarettes, uncomplicated; Y90.9 Presence of alcohol in blood, level not specified; Z23 Encounter for immunization
CPT/HCPCS: 36415; 74022; 74176; 74177; 74247; 790; 80053; 82962; 83605; 83690; 83735; 85025; 85027; 85610; 85730; 87040; 87077; 87186; 90471; 90686; 94799; 96361; 96374; 99291; G0008; J0131; J0330; J0690; J1100; J1170; J1450; J1650; J1885; J2060; J2250; J2405; J2704; J3010; J3411; J3480; J3490; J7030; J7050; S0164